=== PATIENT | male | born 1965 | race Caucasian/White ===

== ENCOUNTER 2016-12-21 21:10 | Emergency (ER) | payer OTHER ==
[~2016-12-21] VITALS: Ht 180.3 cm; Wt 110.5 kg
[~2016-12-21 21:10] MED LIST: Ascorbic Acid,Ester- PO; BENADRYL25 MG PO; BISACODYL5 MG PO; Coumadin Protocol PO; FIORICET,ESG1 TABLET PO; FOLIC ACID1 MG PO; GLUCOPHAGE500 MG PO; HUMIRA40 MG/0.1 SC; IRON325 MG PO; LOFIBRA,TRIGLI160 MG PO; LOPRESSOR100 M1 PO; NAPROSYN500 MG PO; OXYCODONE HCL5 MG PO; PERCOCET 5/31 TABLET PO; TOPROL XL100 MG PO; XARELTO10 MG PO; ZESTRIL10 MG PO; celeBREX PO; lisinopril
[2016-12-21 23:37] LABS: HEMATOCRIT 45.2 % (38.0-50.0); MCH 28.6 PG (29.0-34.0); MCHC 33.6 G/DL (30.0-36.0); MEAN PLAT.VOLUME 9.9 uM^3 (9.0-12.4); PLATELET COUNT 284 K/uL (156-360); RBC DIS.WIDTH-CV 13.8 % (11.8-14.6); RBC DIS.WIDTH-SD 42.3 % (39-53); RED BLOOD COUNT 5.32 M/uL (4.00-5.50); WHITE BLOOD COUNT 13.3 K/uL (4.1-10.2)
[2016-12-21 23:47] LABS: CHLORIDE 105 mEq/L (99-109); POTASSIUM 4.2 mEq/L (3.7-5.4); SODIUM 139 mEq/L (136-147)
[2016-12-21 23:49] LABS: GLUCOSE 96 mg/dL (70-99)
[2016-12-21 23:50] LABS: ANION GAP 14 MEQ/L (2-14)
[2016-12-21 23:51] LABS: TOTAL BILIRUBIN 0.5 mg/dL (0.0-1.0)
[2016-12-21 23:52] LABS: ALKALINE PHOSPHATASE 107 IU/L (3-129)
[2016-12-21 23:53] LABS: GFR ESTIMATE (CALCULATED) > 59 mL/min/
[2016-12-21 23:54] LABS: UREA NITROGEN (BUN) 17 mg/dL (9-23)
[2016-12-22 00:01] LABS: BILIRUBIN NEGATIVE; BLOOD NEGATIVE; COLOR YELLOW ((YELLOW)); GLUCOSE (STRIP) NEGATIVE; KETONES NEGATIVE; LEUKOCYTES NEGATIVE; NITRITE NEGATIVE; PROTEIN (STRIP) 30; UROBILINOGEN 0.2 MG/DL (0.2-1.0)
[2016-12-22 00:02] LABS: ADD MIUA? NO; UCUL ADDED? NO
[2016-12-22] MEDS ORDERED: NORCO 5/3251 TABLET PO (00:19)
[2016-12-22] MEDS ORDERED: VALIUM5 MG PO (00:19)
[2016-12-22 00:41] VITALS: BP 134/86
== END 2016-12-22 00:42 | disposition home or self-care (01) ==
LOC: EME 21:10 → RME 21:10
PROVIDERS: Physician Assistant
DX: M54.6 Pain in thoracic spine (principal); L40.9 Psoriasis, unspecified; I10 Essential (primary) hypertension; E78.5 Hyperlipidemia, unspecified; F17.200 Nicotine dependence, unspecified, uncomplicated; Z96.643 Presence of artificial hip joint, bilateral
CPT/HCPCS: 71020; 80053; 81003; 85027; 93005; 99281; 99284; J3010

== ENCOUNTER 2017-10-18 21:21 | Emergency (ER) | payer OTHER ==
[~2017-10-18] VITALS: Ht 180.3 cm; Wt 109.9 kg
[~2017-10-18 21:21] MED LIST changes: +NORCO 5/3251 TABLET PO; +VALIUM5 MG PO
[2017-10-18] MEDS ORDERED: FLEXERIL10 MG PO (22:26)
[2017-10-18] MEDS ORDERED: PREDNISONE10 M1 PO (22:26)
[2017-10-18 22:47] VITALS: BP 175/89
== END 2017-10-18 22:48 | disposition home or self-care (01) ==
LOC: EME 21:21
DX: M46.46 Discitis, unspecified, lumbar region (principal); G89.29 Other chronic pain; Z96.643 Presence of artificial hip joint, bilateral
CPT/HCPCS: 99281; 99284; J7512